=== PATIENT | female | born 1990 | race Caucasian/White ===

== ENCOUNTER 2017-11-05 08:15 | Emergency (ER) | payer BC ==
[~2017-11-05] VITALS: Ht 170.2 cm; Wt 69.6 kg
[2017-11-05 08:55] LABS: APPEARANCE SL.HAZY ((CLEAR)); BILIRUBIN NEGATIVE; BLOOD MODERATE; COLOR YELLOW ((YELLOW)); GLUCOSE (STRIP) NEGATIVE; KETONES 80; LEUKOCYTES NEGATIVE; NITRITE NEGATIVE; PROTEIN (STRIP) 100; SPECIFIC GRAVITY 1.024 (1.000-1.030); UROBILINOGEN 0.2 MG/DL (0.2-1.0)
[2017-11-05 08:59] LABS: HEMATOCRIT 36.5 % (36.0-46.0); HEMOGLOBIN 12.5 G/DL (11.9-15.5); MCH 31.6 PG (29.0-34.0); MCHC 34.2 G/DL (30.0-36.0); MCV 92.4 FL (83-99); PLATELET COUNT 235 K/uL (156-360); RBC DIS.WIDTH-CV 11.9 % (11.8-14.6); RBC DIS.WIDTH-SD 40.4 % (39-53); RED BLOOD COUNT 3.95 M/uL (3.80-5.20); WHITE BLOOD COUNT 5.3 K/uL (4.1-10.2)
[2017-11-05 09:09] LABS: BACTERIA RARE /HPF; EPITHELIAL CELLS 1+ /HPF; MUCUS 4+ /LPF; RED BLOOD CELLS TNTC /HPF (0-5); WHITE BLOOD CELLS 0-5 /HPF (0-5)
[2017-11-05 09:11] LABS: ALBUMIN 4.4 g/dL (3.2-4.8)
[2017-11-05 09:12] LABS: CHLORIDE 106 mEq/L (99-109); SODIUM 137 mEq/L (136-147)
[2017-11-05 09:14] LABS: GLUCOSE 94 mg/dL (70-99); TOTAL PROTEIN 6.9 g/dL (6.4-8.3)
[2017-11-05 09:16] LABS: TOTAL BILIRUBIN 0.9 mg/dL (0.0-1.0)
[2017-11-05 09:17] LABS: ALKALINE PHOSPHATASE 40 IU/L (3-129)
[2017-11-05 09:18] LABS: CREATININE 0.7 mg/dL (0.6-1.3); GFR ESTIMATE (CALCULATED) > 59 mL/min/
[2017-11-05 09:19] LABS: AST (GOT) 12 IU/L (2-34); UREA NITROGEN (BUN) 10 mg/dL (9-23)
[2017-11-05 09:20] LABS: ALT (GPT) 11 IU/L (3-49)
[2017-11-05 09:21] LABS: LIPASE 11 U/L (1.0-51.0)
[2017-11-05 09:26] LABS: QUANTITATIVE HCG < 4.0 MIU/ML
[2017-11-05] MEDS ORDERED: LEVSIN-SL0.125 MG SL (12:07)
[2017-11-05] MEDS ORDERED: NORCO 5/3251 TABLET PO (12:07)
[2017-11-05 12:18] VITALS: BP 113/72
== END 2017-11-05 12:54 | disposition home or self-care (01) ==
LOC: EME 08:15
PROVIDERS: Nurse Practitioner Family
DX: R10.31 Right lower quadrant pain (principal); Z97.5 Presence of (intrauterine) contraceptive device
CPT/HCPCS: 74177; 76856; 80053; 81003; 83690; 84702; 85027; 93005; 99281; 99285